=== PATIENT | female | born 1960 | race Caucasian/White ===

== ENCOUNTER 2021-08-03 17:09 | Inpatient (IN) | payer MEDICARE ==
[~2021-08-03] VITALS: Ht 167.6 cm; Wt 71.7 kg
[2021-08-03 18:24] LABS: BASOPHILS % 0.2 % (0.0-1.0); EOSINOPHILS % 0.1 % (0.0-6.0); HEMATOCRIT 33.2 % (34.2-44.1); HEMOGLOBIN 10.4 g/dL (12.0-16.0); LYMPHOCYTES # (AUTO) 2.3 (1.0-3.2); LYMPHOCYTES % 16.5 % (18.0-39.1); MEAN CORPUSCULAR HEMOGLOBIN 29.5 pg (28-32); MEAN CORPUSCULAR HGB CONC 31.3 g/dL (31-35); MEAN CORPUSCULAR VOLUME 94.1 fL (81-99); MONOCYTES # (AUTO) 0.8 (0.2-0.8); MONOCYTES % 5.6 % (4.4-11.3); NEUTROPHILS # (AUTO) 10.7 (2.1-6.9); NEUTROPHILS % 77.2 % (38.7-80.0); PLATELET COUNT 322 x10e3/uL (140-360); RED BLOOD COUNT 3.53 x10e6/uL (3.6-5.1); RED CELL DISTRIBUTION WIDTH 15.4 % (11.7-14.4)
[2021-08-03] MEDS ORDERED: ACETAMINOPHEN 1000 MG/100 ML IV STA (18:26)
[2021-08-03 18:29] LABS: CLARITY,URINE SL CLOUDY (CLEAR); COLOR,URINE STRAW (YELLOW); KETONES,URINE NEGATIVE (NEGATIVE); LEUKOCYTE ESTERASE ,URINE NEGATIVE (NEGATIVE); NITRITE,URINE NEGATIVE (NEGATIVE); PROTEIN,URINE DIPSTICK >=300 (NEGATIVE); URINE UROBILINOGEN 0.2 mg/dL (0.2 - 1)
[2021-08-03 18:31] LABS: AMPHETAMINES SCREEN,URINE NEGATIVE (NEGATIVE); BENZODIAZEPINES SCREEN,URINE NEGATIVE (NEGATIVE); PHENCYCLIDINE SCREEN,URINE NEGATIVE (NEGATIVE)
[2021-08-03 18:33] LABS: INR 0.95; PROTHROMBIN TIME 13.6 seconds (11.9-14.5)
[2021-08-03 18:38] LABS: BACTERIA,URINE MODERATE /HPF
[2021-08-03 18:39] LABS: AMORPHOUS SEDIMENT,URINE MODERATE (FEW)
[2021-08-03 18:43] LABS: ALBUMIN 2.3 g/dL (3.5-5.0); ALBUMIN/GLOBULIN RATIO 0.5 (0.8-2.0); ANION GAP 18.3 mmol/L (8-16); CALCIUM 8.2 mg/dL (8.4-10.2); CREATININE, SERUM 5.63 mg/dL (0.57-1.11); POTASSIUM 4.3 mmol/L (3.5-5.1)
[2021-08-03] MEDS ORDERED: SODIUM CHLORIDE 0.9% 500ML 500 ML IV ONE (18:45)
[2021-08-03 18:46] LABS: SALICYLATE < 5.0 mg/dL (0-30)
[2021-08-03] MEDS ORDERED: CEFTRIAXONE 1 GM VIAL ONE (18:59)
[2021-08-03] MEDS ORDERED: LACTATED RINGER'S 1,000 ML INJ ONE ×2 (19:30→20:00)
[2021-08-03] MEDS ORDERED: HEPARIN SOD (PORCINE) 1000 UNIT/ML 10ML MDV IV PRN (20:00)
[2021-08-03] MEDS ORDERED: SODIUM CHLORIDE 0.9% 1000ML 2,000 ML IV PRN (20:00)
[2021-08-03] MEDS: SODIUM CHLORIDE 0.9% 1000ML 1,000 ML IV SCH (20:30)
[2021-08-03] MEDS ORDERED: Vancomycin IV 1 GM in SODIUM CHLORIDE 0.9% 250ML 250 ML IV ONE (20:45)
[2021-08-03 21:50] VITALS: BP 183/80
[2021-08-03] MEDS ORDERED: HEPARIN SOD (PORCINE) 1000 UNIT/ML SDV ONE (22:15)
[2021-08-03 22:18] VITALS: BP 173/97
[2021-08-03] MEDS ORDERED: ASPIRIN CHEW81 MG PO (23:30)
[2021-08-03] MEDS ORDERED: COLACE CLEAR50 MG PO (23:32)
[2021-08-03] MEDS ORDERED: COREG12.5 MG PO (23:33)
[2021-08-03] MEDS ORDERED: GABAPENTIN100 MG PO (23:34)
[2021-08-03 23:44] VITALS: BP 182/73
[2021-08-03] MEDS ORDERED: HYDRALAZINE HCL50 MG PO ×2 (23:49)
[2021-08-03] MEDS ORDERED: IBUPROFEN200 MG PO (23:49)
[2021-08-03] MEDS ORDERED: LIPITOR20 MG PO (23:50)
[2021-08-03] MEDS ORDERED: LANTUS 3ML100 UNITS/ SUBD (23:53)
[2021-08-04] VITALS (7 sets, daily range): BP systolic 166–186; BP diastolic 60–76
[2021-08-04] MEDS ORDERED: PHOSLYRA667 MG/5 M PO (00:04)
[2021-08-04] MEDS ORDERED: NORVASC5 MG PO (00:04)
[2021-08-04] MEDS ORDERED: ATIVAN0.5 MG PO (00:04)
[2021-08-04] MEDS ORDERED: LYRICA50 MG PO (00:04)
[2021-08-04] MEDS ORDERED: MULTIVITAMINS1 EAC6 PO (00:05)
[2021-08-04] MEDS ORDERED: MUPIROCIN22 GM TOP (00:07)
[2021-08-04] MEDS ORDERED: PLAVIX75 MG PO (00:08)
[2021-08-04] MEDS ORDERED: RISPERIDONE0.5 MG PO (00:09)
[2021-08-04] MEDS ORDERED: SYNTHROID125 MCG PO (00:10)
[2021-08-04] MEDS ORDERED: VITAMIN C500 MG PO (00:12)
[2021-08-04] MEDS ORDERED: ONDANSETRON ODT4 MG PO (00:13)
[2021-08-04] MEDS ORDERED: ZOLOFT50 MG PO (00:14)
[2021-08-04] MEDS ORDERED: TYLENOL EXTRA500 MG PO (00:15)
[2021-08-04] MEDS: SODIUM CHLORIDE 0.9% 1000ML 1,000 ML IV SCH ×2 (04:30→12:30)
[2021-08-04 08:22] LABS: BASOPHILS # (AUTO) 0.1 (0.0-0.1); BASOPHILS % 0.5 % (0.0-1.0); EOSINOPHILS # (AUTO) 0.1 (0.0-0.4); HEMOGLOBIN 9.2 g/dL (12.0-16.0); LYMPHOCYTES # (AUTO) 2.1 (1.0-3.2); LYMPHOCYTES % 19.6 % (18.0-39.1); MEAN CORPUSCULAR HEMOGLOBIN 29.8 pg (28-32); MEAN CORPUSCULAR HGB CONC 30.7 g/dL (31-35); MEAN CORPUSCULAR VOLUME 97.1 fL (81-99); MONOCYTES # (AUTO) 0.9 (0.2-0.8); MONOCYTES % 8.9 % (4.4-11.3); NEUTROPHILS # (AUTO) 7.3 (2.1-6.9); NEUTROPHILS % 69.4 % (38.7-80.0); PLATELET COUNT 264 x10e3/uL (140-360); RED BLOOD COUNT 3.09 x10e6/uL (3.6-5.1); RED CELL DISTRIBUTION WIDTH 15.4 % (11.7-14.4)
[2021-08-04 08:41] LABS: ANION GAP 16.8 mmol/L (8-16); CALCIUM 7.7 mg/dL (8.4-10.2); CREATININE, SERUM 5.98 mg/dL (0.57-1.11); POTASSIUM 3.8 mmol/L (3.5-5.1)
[2021-08-04] MEDS ORDERED: INSULIN REGULAR, HUMAN 100 UNIT/1 ML SQ ONE (16:30)
[2021-08-04] MEDS: INSULIN REGULAR, HUMAN 100 UNIT/1 ML SQ SCH ×4 (16:30→21:00)
[2021-08-04] MEDS ORDERED: DEXTROSE 50% SYRINGE 50 ML IV PRN (16:30)
[2021-08-04] MEDS: METOPROLOL TARTRATE 25 MG TAB PO SCH (16:52)
[2021-08-04] MEDS ORDERED: INSULIN GLARGINE 100 UNITS/ML VIAL SQ SCH (21:00)
[2021-08-05 04:00] VITALS: BP 206/89
[2021-08-05] MEDS ORDERED: ACETAMINOPHEN 325 MG TAB PO PRN (05:30)
[2021-08-05] MEDS ORDERED: HYDRALAZINE HCL 25 MG TAB PO PRN (05:30)
[2021-08-05] MEDS ORDERED: IBUPROFEN 200 MG TAB PO PRN (05:30)
[2021-08-05] MEDS ORDERED: ONDANSETRON HCL 4 MG ORAL DISINTEGRATING TAB PO PRN (06:00)
[2021-08-05] MEDS ORDERED: LEVOTHYROXINE SODIUM 75 MCG TAB PO SCH (06:30)
[2021-08-05] MEDS ORDERED: INSULIN GLARGINE 100 UNITS/ML VIAL SQ SCH (07:30)
[2021-08-05] MEDS: INSULIN REGULAR, HUMAN 100 UNIT/1 ML SQ SCH ×6 (07:30→17:39)
[2021-08-05 07:32] LABS: ALBUMIN 2.1 g/dL (3.5-5.0); ALBUMIN/GLOBULIN RATIO 0.4 (0.8-2.0); ANION GAP 17.8 mmol/L (8-16); CALCIUM 7.8 mg/dL (8.4-10.2); CREATININE, SERUM 6.74 mg/dL (0.57-1.11); POTASSIUM 3.8 mmol/L (3.5-5.1)
[2021-08-05] MEDS ORDERED: SODIUM CHLORIDE 0.9% 1000ML 2,000 ML IV PRN (07:45)
[2021-08-05] MEDS ORDERED: HEPARIN SOD (PORCINE) 1000 UNIT/ML SDV IV PRN (07:45)
[2021-08-05] MEDS ORDERED: CARVEDILOL 12.5 MG TAB PO SCH (08:00)
[2021-08-05 08:04] VITALS: BP 166/61
[2021-08-05 08:16] VITALS: BP 166/61
[2021-08-05] MEDS ORDERED: LORAZEPAM 1 MG TAB PO SCH (08:30)
[2021-08-05] MEDS: METOPROLOL TARTRATE 25 MG TAB PO SCH (09:00)
[2021-08-05] MEDS ORDERED: CALCIUM ACETATE 667 MG GELCAP PO SCH (09:00)
[2021-08-05] MEDS ORDERED: ASCORBIC ACID 500 MG TAB PO SCH (09:00)
[2021-08-05] MEDS ORDERED: CLOPIDOGREL BISULFATE 75 MG TAB PO SCH (09:00)
[2021-08-05] MEDS ORDERED: AMLODIPINE BESYLATE 5 MG TAB PO SCH (09:00)
[2021-08-05] MEDS ORDERED: ASPIRIN 81 MG CHEW TAB PO SCH (09:00)
[2021-08-05] MEDS ORDERED: LORAZEPAM 1 MG TAB PO PRN (09:00)
[2021-08-05] MEDS ORDERED: MUPIROCIN 2% OINT 22 GM TUBE TOP SCH (09:00)
[2021-08-05] MEDS ORDERED: MULTIVITAMINS/MINERALS TAB PO SCH (09:00)
[2021-08-05] MEDS: DOCUSATE SODIUM 100 MG CAP PO SCH ×2 (09:15→17:42)
[2021-08-05 11:25] VITALS: BP 149/53
[2021-08-05 15:47] VITALS: BP 187/63
[2021-08-05 17:00] VITALS: BP 158/63
[2021-08-05] MEDS ORDERED: ATORVASTATIN 40 MG TAB PO SCH (21:00)
[2021-08-05] MEDS ORDERED: HYDRALAZINE HCL 25 MG TAB PO SCH (21:00)
[2021-08-05] MEDS ORDERED: GABAPENTIN 100 MG CAP PO SCH (21:00)
[2021-08-05] MEDS ORDERED: SERTRALINE HCL 50 MG TAB PO SCH (21:00)
[2021-08-05] MEDS ORDERED: RISPERIDONE 0.5 MG TAB PO SCH (21:00)
[2021-08-05] MEDS ORDERED: PREGABALIN 50 MG CAP PO SCH (21:00)
== END 2021-08-05 18:04 | DRG 884 ==
LOC: ER 17:51 → ERHOLD 20:27 → MED/SURG3 22:05
PROC: 5A1D70Z Performance of Urinary Filtration, Intermittent, Less than 6 Hours Per Day (ICD-10-PCS; principal; 2021-08-05)
DX: F03.91 Unspecified dementia, unspecified severity, with behavioral disturbance (principal); N18.6 End stage renal disease; I50.23 Acute on chronic systolic (congestive) heart failure; G93.41 Metabolic encephalopathy; F05 Delirium due to known physiological condition; I13.2 Hypertensive heart and chronic kidney disease with heart failure and with stage 5 chronic kidney disease, or end stage renal disease; E11.51 Type 2 diabetes mellitus with diabetic peripheral angiopathy without gangrene; I25.10 Atherosclerotic heart disease of native coronary artery without angina pectoris; E11.22 Type 2 diabetes mellitus with diabetic chronic kidney disease; Z99.2 Dependence on renal dialysis; Z79.899 Other long term (current) drug therapy; E78.5 Hyperlipidemia, unspecified; Z89.429 Acquired absence of other toe(s), unspecified side; Z88.1 Allergy status to other antibiotic agents; Z91.041 Radiographic dye allergy status; E03.9 Hypothyroidism, unspecified; Z20.822 Contact with and (suspected) exposure to COVID-19; I48.91 Unspecified atrial fibrillation; Z79.01 Long term (current) use of anticoagulants; I25.2 Old myocardial infarction
CPT/HCPCS: 36415; 70450; 71045; 80048; 80053; 80202; 80307; 80329; 81001; 82948; 83036; 83605; 84484; 85025; 85610; 85730; 86705; 86706; 87040; 87086; 87340; 90962; 93005; 94799; 96361; 99251; 99284; J0696; J1644; J1815; J1817; J3370; J7040; J7050; J7121; U0002